=== PATIENT | male | born 1980 | race African-American/Black ===

== ENCOUNTER 2017-10-24 13:02 | Emergency (ER) | payer OTHER ==
[2017-10-24] MEDS ORDERED: Acetaminophen 500 MG TAB ONE (13:15)
== END 2017-10-24 14:23 | disposition home or self-care (01) ==
LOC: NAV ERS 13:02
DX: J11.1 Influenza due to unidentified influenza virus with other respiratory manifestations (principal); F17.200 Nicotine dependence, unspecified, uncomplicated
CPT/HCPCS: 99284

== ENCOUNTER 2018-07-25 07:30 | Emergency (ER) | payer OTHER, SELFPAY ==
[2018-07-25] MEDS ORDERED: Bupivacaine 0.5% 10 ML VIAL ONE (07:50)
[2018-07-25] MEDS ORDERED: Penicillin V Potassium 250 MG TAB ONE (08:11)
[2018-07-25] MEDS ORDERED: traMADol HCl 50 MG TAB ONE (08:19)
== END 2018-07-25 08:24 | disposition home or self-care (01) ==
LOC: NAV ERS 07:30
DX: K04.7 Periapical abscess without sinus (principal); F17.210 Nicotine dependence, cigarettes, uncomplicated
CPT/HCPCS: 41800; 99406; J3490